=== PATIENT | male | born 2005 | race Caucasian/White ===

== ENCOUNTER 2025-09-18 10:41 | Emergency (ER) | payer SELFPAY ==
[~2025-09-18] VITALS: Ht 165.1 cm; Wt 72.6 kg
[2025-09-18 10:49] VITALS: TEMP 98.3
[2025-09-18] MEDS: LIDOCAINE 1% INJ 50 ML MDV IJ ONE (11:48)
[2025-09-18] MEDS ORDERED: TDAP [DIPH/PERTUSSIS/TET] 0.5 ML VIAL IM ONE (11:49)
[2025-09-18] MEDS: BACI/NEOM/POLY B OINT PKT 1 UDPKT PACKET TP ONE (11:50)
[2025-09-18] MEDS: TDAP [DIPH/PERTUSSIS/TET] 0.5 ML VIAL IM ONE (11:50)
[2025-09-18 12:14] VITALS: BP 125/70; O2SAT 98
== END 2025-09-18 12:08 | disposition home or self-care (01) ==
LOC: ER 10:50
DX: S01.01XA Laceration without foreign body of scalp, initial encounter (principal); W45.8XXA Other foreign body or object entering through skin, initial encounter; Y93.89 Activity, other specified; Y92.89 Other specified places as the place of occurrence of the external cause; Y99.8 Other external cause status
CPT/HCPCS: 12001; 90471; 90715; 99283; A6403